=== PATIENT | female | born 1975 | race Caucasian/White ===

== ENCOUNTER 2023-09-29 10:38 | Outpatient (OUT) | payer OTHER, SELFPAY ==
--- NOTE | 2023-09-29 10:42 | MM_ITS ---
Patient Name: DAISY BARROS MR#: [id number] : 1975 Exam Date: 09/29/2023 Ordering Doctor: DR IRINEO LUNA RADIOLOGY REPORT PROCEDURE: MM TOMOSYNTHESIS SCREENING BI COMPARISON: MG MAMM SCREEN 3D [place] CAD, 09/25/2022. MG MAMM SCREEN 3D [place] CAD, 09/24/2021. MG MAMM LT DIAG W CAD, 08/30/2020. MG MAMM [place] SCRN W CAD DIG, 04/11/2016. INDICATIONS: screening Calculator Name NCI Breast Cancer Risk Assessment Tool 5 Year Breast Cancer Risk 0.70% Lifetime Breast Cancer Risk 7.70% Personal Breast Cancer No Personal Ovarian Cancer No Treatments None Family Cancers None LOCATION: [facility] BREAST COMPOSITION: Heterogeneously dense,which may obscure small masses. FINDINGS: DIAGNOSTIC CATEGORY 2--BENIGN FINDING: RIGHT BREAST: No significant suspicious finding. No significant change has occurred. LEFT BREAST: No significant suspicious finding. Scattered benign-appearing lymph nodes are present. No significant change has occurred. RECOMMENDATIONS: ROUTINE MAMMOGRAM AND CLINICAL EVALUATION IN 12 MONTHS. PLEASE NOTE: A NORMAL MAMMOGRAM DOES NOT EXCLUDE THE POSSIBILITY OF BREAST CANCER. A CLINICALLY SUSPICIOUS PALPABLE LUMP SHOULD BE BIOPSIED. Dictated by: León Doss M.D. on 10/01/2023 at 12:17 Approved by: León Doss M.D. on 10/01/2023 at 12:20
== END 2023-09-29 10:39 | disposition home or self-care (01) ==
LOC: MAMMO 10:38
PROVIDERS: Visit Provider Obstetrics & Gynecology
DX: Z12.31 Encounter for screening mammogram for malignant neoplasm of breast (principal)
CPT/HCPCS: 77063; 77067

== ENCOUNTER 2024-09-30 15:58 | Outpatient (OUT) | payer OTHER, SELFPAY ==
--- NOTE | 2024-09-30 16:40 | MM_ITS ---
Patient Name: DAISY BARROS MR#: [id number] : 1975 Exam Date: 09/30/2024 Ordering Doctor: KWESI VARGAS [facility] RADIOLOGY REPORT PROCEDURE: MM TOMOSYNTHESIS SCREENING BI COMPARISON: MM TOMOSYNTHESIS SCREENING BI, 09/29/2023. MG MAMM SCREEN 3D [place] CAD, 09/25/2022. MG MAMM SCREEN 3D [place] CAD, 09/24/2021. MG MAMM [place] SCRN W CAD DIG, 04/11/2016. INDICATIONS: Screening Calculator Name NCI Breast Cancer Risk Assessment Tool 5 Year Breast Cancer Risk 0.70% Lifetime Breast Cancer Risk 7.60% Personal Breast Cancer No Personal Ovarian Cancer No Treatments None Family Cancers None LOCATION: [facility] BREAST COMPOSITION: There are scattered areas of fibroglandular density. FINDINGS: DIAGNOSTIC CATEGORY 1--NEGATIVE. RIGHT BREAST: No significant suspicious finding. LEFT BREAST: No significant suspicious finding. RECOMMENDATIONS: ROUTINE MAMMOGRAM AND CLINICAL EVALUATION IN 12 MONTHS. PLEASE NOTE: A NORMAL MAMMOGRAM DOES NOT EXCLUDE THE POSSIBILITY OF BREAST CANCER. A CLINICALLY SUSPICIOUS PALPABLE LUMP SHOULD BE BIOPSIED. Dictated by: Alexandru Banegas DO on 10/01/2024 at 15:20 Approved by: Alexandru Banegas DO on 10/01/2024 at 15:21
== END 2024-09-30 15:59 | disposition home or self-care (01) ==
LOC: MAMMO 16:01
DX: Z12.31 Encounter for screening mammogram for malignant neoplasm of breast (principal)
CPT/HCPCS: 77063; 77067